=== PATIENT | female | born 1965 | race Asian ===

== ENCOUNTER 2019-04-03 11:19 | Day surgery (SDC) | payer OTHER ==
[~2019-04-03] VITALS: Ht 154.9 cm; Wt 59.5 kg
[2019-04-03] MEDS ORDERED: FentaNYL CITRATE-PF 100 MCG/2 ML VIAL IVP ONE (11:20)
[2019-04-03] MEDS ORDERED: MIDAZOLAM HCL 2 MG/2 ML VIAL IVP ONE (11:20)
[2019-04-03] MEDS ORDERED: LIDOCAINE/PF 2% 5 ML VIAL IM ONE (11:20)
[2019-04-03] MEDS ORDERED: PROPOFOL 1% 20 ML VIAL IVP ONE (11:20)
[2019-04-03] MEDS ORDERED: ONDANSETRON HCL 4 MG/2 ML VIAL IVP ONE (11:20)
[2019-04-03] MEDS ORDERED: SODIUM CHLORIDE 0.9% 1,000 ML IV ONE ×2 (11:45→12:05)
[2019-04-03] MEDS ORDERED: CLON0.1T PO (12:19)
[2019-04-03] MEDS ORDERED: ATOR20TA86 PO (12:19)
[2019-04-03] MEDS ORDERED: INSLAN SQ (12:19)
[2019-04-03] MEDS ORDERED: METO25TA6 PO (12:19)
[2019-04-03] MEDS ORDERED: AMIT10TA6 PO (12:19)
[2019-04-03] MEDS ORDERED: ASPI81 PO (12:19)
[2019-04-03] MEDS ORDERED: TEMA7.5C17 PO (12:19)
[2019-04-03] MEDS ORDERED: CLON0.2T PO (12:19)
[2019-04-03] MEDS ORDERED: FURO80 PO (12:19)
[2019-04-03 12:42] LABS: GLUCOMETER DEV NAME(LOC) SDS.; GLUCOSE,POINT OF CARE 172 MG/DL (70-110)
[2019-04-03 13:17] LABS: BASOPHILS % (AUTO) 0.5 % (0.0-2.0); EOSINOPHILS % (AUTO) 2.8 % (1.0-6.0); HEMATOCRIT 35.2 % (36-46); HEMOGLOBIN 11.5 g/dL (12.0-16.0); LYMPHOCYTES # (AUTO) 1.8 K/uL (1.0-4.8); LYMPHOCYTES % (AUTO) 23.1 % (22.0-44.0); MEAN CORPUSCULAR HEMOGLOBIN 30.3 pg (26.0-34.0); MEAN CORPUSCULAR HGB CONC 32.7 G/dL (31.0-37.0); MEAN CORPUSCULAR VOLUME 93 fL (80-100); MONOCYTES # (AUTO) 0.7 K/uL (0.1-1.0); MONOCYTES % (AUTO) 8.7 % (2.0-9.0); NEUTROPHILS # (AUTO) 5.1 K/uL (1.8-7.7); NEUTROPHILS % (AUTO) 64.9 % (40.0-70.0); PLATELET COUNT (AUTO) 447 K/uL (150-450); RED CELL DISTRIBUTION WIDTH 16.4 % (11.5-14.5)
[2019-04-03] MEDS ORDERED: BUPIVACAINE HCL/PF 0.25% 30 ML VIAL ONE (13:22)
[2019-04-03] MEDS ORDERED: LIDOCAINE/PF 1% 30 ML VIAL ONE (13:22)
[2019-04-03 13:27] LABS: CALCIUM, TOTAL 10.2 mg/dL (8.8-10.5); CREATININE 4.19 mg/dL (0.60-1.30)
[2019-04-03 13:33] LABS: ALBUMIN 3.8 g/dL (3.4-5.0); BILIRUBIN,TOTAL 0.8 mg/dL (0.1-1.0); TOTAL PROTEIN, SERUM 8.3 g/dL (6.4-8.2)
[2019-04-03] MEDS ORDERED: VANCOMYCIN HCL 1 GM/VIAL ONE (13:44)
[2019-04-03] MEDS ORDERED: SODIUM CHLORIDE 0.9% 100 ML ONE (13:47)
[2019-04-03] MEDS ORDERED: FentaNYL CITRATE-PF 100 MCG/2 ML VIAL IVP PRN (14:00)
[2019-04-03] MEDS ORDERED: MEPERIDINE-PF 25 MG/ML VIAL IVP PRN (14:00)
[2019-04-03] MEDS ORDERED: HYDROmorphone 2 MG/ML SYRINGE IVP PRN (14:00)
[2019-04-03] MEDS ORDERED: ACETAMINOPHEN 1000 MG/ISO-OSM 100 ML IV ONE ×2 (14:40→14:45)
[2019-04-03] MEDS ORDERED: OXYGEN THERAPY IH SCH (20:00)
== END 2019-04-03 16:30 | disposition home or self-care (01) ==
LOC: SURGERY 11:19
PROVIDERS: ATTEND Surgery
DX: T82.7XXA Infection and inflammatory reaction due to other cardiac and vascular devices, implants and grafts, initial encounter (principal); K65.9 Peritonitis, unspecified; I12.0 Hypertensive chronic kidney disease with stage 5 chronic kidney disease or end stage renal disease; N18.6 End stage renal disease; Z99.2 Dependence on renal dialysis; Z88.1 Allergy status to other antibiotic agents; Z79.899 Other long term (current) drug therapy; Z98.890 Other specified postprocedural states; Y83.1 Surgical operation with implant of artificial internal device as the cause of abnormal reaction of the patient, or of later complication, without mention of misadventure at the time of the procedure
CPT/HCPCS: 36415; 49422; 80053; 82962; 85025; 87070; J0131; J2250; J2405; J2704; J3010; J3370; J3490 ×3; J7030; J7050